=== PATIENT | female | born 1960 | race Caucasian/White ===

== ENCOUNTER 2022-04-21 21:16 | Inpatient (IN) ==
[2022-04-22] MEDS ORDERED: LORazepam 2 MG/1 ML VIAL ONE (00:30)
[2022-04-22] MEDS ORDERED: HALOPERIDOL 5 MG/ML AMP IM ONE (00:37)
[2022-04-22] MEDS ORDERED: LORazepam 2 MG/1 ML VIAL IV ONE ×2 (00:37→01:00)
[2022-04-22] MEDS ORDERED: ALBUTEROL 2.5 MG/3 ML NEB RESP TX PRN (00:45)
[2022-04-22] MEDS ORDERED: ACETAMINOPHEN 325 MG TABLET PO PRN (00:47)
[2022-04-22] MEDS ORDERED: SODIUM CHLORIDE 0.9% 1,000 ML IV SCH ×2 (01:00→04:30)
[2022-04-22 01:10] LABS: Basophils % 0.2 % (0.0-0.8); Hematocrit 42.3 VOL% (35.7-47.0); Hemoglobin 13.5 GM/DL (12.0-16.0); Immature Granulocytes % 0.6 %; Immature Granulocytes Absolute 0.11 #; Lymphocytes # 3.2 10*3/uL (1.4-4.0); Lymphocytes % 17.6 % (21.3-54.2); Mean Corpuscular HGB Conc 31.9 GM/DL (32-36); Mean Corpuscular Volume 89.4 FL (87-102); Mean Platelet Volume 11.6 FL (9.6-12.0); Monocytes # 1.8 10*3/uL (0.11-0.8); Monocytes % 9.8 % (1.7-12.7); Neutrophils % 71.8 % (38.7-73.9); Platelet Count 269 T/CUMM (130-400); Red Blood Count 4.73 MC/CUMM (3.8-5.5); Red Cell Distribution Width 13.7 % (9.3-17.3); White Blood Count 18.3 T/CUMM (4-12)
[2022-04-22] MEDS ORDERED: DEXMEDETOMIDINE 200 MCG in SODIUM CHLORIDE 0.9% 48 ML IV PRN (01:15)
[2022-04-22 01:33] LABS: Lactic Acid 4.9 MMOL/L (0.4-2.0)
[2022-04-22 01:49] LABS: Albumin 3.3 G/DL (3.4-5.0); Calcium 8.9 MG/DL (8.5-10.1); Osmolality,Calculated 271.2 MOS/KG (273-304); Potassium 4.5 MMOL/L (3.5-5.1); Total Protein 7.6 G/DL (6.4-8.2)
[2022-04-22] MEDS ORDERED: SODIUM PHOSPHATE IV PRN (01:59)
[2022-04-22] MEDS ORDERED: SODIUM BICARB INJ 100 MEQ in STERILE WATER INJ 400 ML IV PRN (01:59)
[2022-04-22] MEDS ORDERED: MAGNESIUM SULF RIDER 4 GM/100 ML PREMIX IV PRN (01:59)
[2022-04-22] MEDS ORDERED: POTASSIUM CHLORIDE RIDER 10 MEQ/100 ML PREMIX IV PRN (01:59)
[2022-04-22] MEDS ORDERED: SODIUM CHLORIDE 0.9% IV PRN (01:59)
[2022-04-22 02:36] LABS: Arterial Base Excess iSTAT -5 MMOL/L (-2.5-2.5); Arterial Bicarbonate iSTAT 21.6 MMOL/L (20-26); Arterial O2 Saturation iSTAT 100 % (95-100); Arterial PCO2 iSTAT 44 MM HG (35-48); Arterial PO2 iSTAT 339 MM HG (80-95); Arterial Total CO2 iSTAT 23 MMO/L (23-27); Arterial pH iSTAT 7.298 (7.35-7.45)
[2022-04-22] MEDS ORDERED: DEXTROSE 10% 250 ML BAG IV PRN ×2 (02:40→02:41)
[2022-04-22 04:21] LABS: Mucus,Urine Occasional /LPF (Occasional); RBC,Urine 2 /HPF (0-4); Squamous Epithelial Cell,Urine Occasional /HPF (0-10)
[2022-04-22 04:22] LABS: Bilirubin,Urine Large mg/dL (Negative); Blood, Urine Trace mg/dL (Negative); Glucose,Urine (UA) Negative (Negative); Ketones,Urine 80 mg/dL (Negative); Nitrite,Urine Negative (Negative); Protein,Urine 30 mg/dL (Negative); Urine Appearance Clear (Clear); Urine Color Yellow (Yellow); Urine Specific Gravity 1.015 (1.001-1.035); Urine Urobilinogen 0.2 eU/dL (<2.0)
[2022-04-22] MEDS: MAGNESIUM SULF RIDER 2 GM/50 ML PREMIX IV PRN (04:23)
[2022-04-22] MEDS: DEXMEDETOMIDINE 400 MCG in SODIUM CHLORIDE 0.9% 96 ML IV PRN ×4 (05:27→21:11)
[2022-04-22 06:51] LABS: Calcium 8.3 MG/DL (8.5-10.1); Osmolality,Calculated 283.8 MOS/KG (273-304); Potassium 4.4 MMOL/L (3.5-5.1)
[2022-04-22] MEDS ORDERED: ZIPRASIDONE 20 MG/1 ML VIAL IM ONE (08:03)
[2022-04-22] MEDS ORDERED: DEXTROSE 50% 25 GM/50 ML VIAL IV PRN ×2 (08:04)
[2022-04-22] MEDS ORDERED: SODIUM CHLORIDE 0.9% 1,000 ML IV ONE (08:04)
[2022-04-22 08:22] LABS: INR 0.9; PT Patient Result 10.4 SECS (10.1-12.1)
[2022-04-22 08:45] LABS: Acetaminophen < 2.0 UG/ML (10-30); Salicylate < 2.8 MG/DL (2.8-20)
[2022-04-22 09:04] LABS: Barbiturates Screen,Urine Negative (Negative); Benzodiazepines Screen,Urine Positive (Negative); Cannabinoid Screen,Urine Negative (Negative); Opiate Screen,Urine Positive (Negative); Phencyclidine Screen,Urine Negative (Negative)
[2022-04-22] MEDS: ENOXAPARIN 40 MG/0.4 ML SYRINGE SUBCUT SCH (09:10)
[2022-04-22 09:28] LABS: Arterial Base Excess iSTAT -10 MMOL/L (-2.5-2.5); Arterial Bicarbonate iSTAT 17.7 MMOL/L (20-26); Arterial O2 Saturation iSTAT 98 % (95-100); Arterial PCO2 iSTAT 44 MM HG (35-48); Arterial PO2 iSTAT 138 MM HG (80-95); Arterial Total CO2 iSTAT 19 MMO/L (23-27); Arterial pH iSTAT 7.214 (7.35-7.45)
[2022-04-22] MEDS: INSULIN REGULAR DRIP 100 ML IV SCH (10:54)
[2022-04-22] MEDS: SODIUM CHLOR 0.45% KCL 20 MEQ 20 MEQ/1,000 ML BAG IV SCH ×5 (10:55→21:21)
[2022-04-22] MEDS: QUEtiapine 25 MG TABLET PO SCH ×2 (11:27→21:22)
[2022-04-22] MEDS: PANTOPRAZOLE 40 MG VIAL IV SCH ×2 (11:27→22:00)
[2022-04-22] MEDS: PIPERACILLIN/TAZOBACTAM 3,375 MG in SODIUM CHLORIDE 0.9% 100 ML IV SCH ×2 (11:28→19:00)
[2022-04-22] MEDS: MORPHINE 2 MG/1 ML SYRINGE IV PRN (11:29)
[2022-04-22 11:39] LABS: Calcium 8.2 MG/DL (8.5-10.1); Osmolality,Calculated 288.1 MOS/KG (273-304); Potassium 5.2 MMOL/L (3.5-5.1)
[2022-04-22 12:30] LABS: Potassium 4.4 MMOL/L (3.5-5.1)
[2022-04-22] MEDS: ZIPRASIDONE 20 MG/1 ML VIAL IM PRN ×2 (13:35→21:21)
[2022-04-22 16:02] LABS: Calcium 7.7 MG/DL (8.5-10.1); Osmolality,Calculated 283.4 MOS/KG (273-304); Potassium 4.5 MMOL/L (3.5-5.1)
[2022-04-22] MEDS: DEXT 5% NACL 0.45% KCL 20 MEQ 20 MEQ/1,000 ML BAG IV SCH ×3 (16:30→22:23)
[2022-04-22 19:26] LABS: Calcium 7.6 MG/DL (8.5-10.1); Osmolality,Calculated 282.5 MOS/KG (273-304); Potassium 4.1 MMOL/L (3.5-5.1)
[2022-04-22] MEDS: SODIUM CHLORIDE 0.45% 1,000 ML IV SCH (19:38)
[2022-04-22] MEDS ORDERED: INSULIN GLARGINE 100 UNIT/ML SUBCUT ONE (20:00)
[2022-04-22] MEDS ORDERED: INSULIN REGULAR 100 UNIT/ML SUBCUT SCH (22:00)
[2022-04-23] MEDS: ZIPRASIDONE 20 MG/1 ML VIAL IM PRN ×2 (01:40→11:00)
[2022-04-23] MEDS: DEXMEDETOMIDINE 400 MCG in SODIUM CHLORIDE 0.9% 96 ML IV PRN ×4 (02:01→19:54)
[2022-04-23] MEDS: SODIUM CHLOR 0.45% KCL 20 MEQ 20 MEQ/1,000 ML BAG IV SCH ×6 (02:06→21:30)
[2022-04-23 02:48] LABS: Basophils % 0.1 % (0.0-0.8); Eosinophils # 0.1 10*3/uL (0.0-0.87); Eosinophils % 0.6 % (0.00-10.9); Hematocrit 32.6 VOL% (35.7-47.0); Immature Granulocytes % 0.3 %; Immature Granulocytes Absolute 0.03 #; Lymphocytes # 1.9 10*3/uL (1.4-4.0); Lymphocytes % 17.9 % (21.3-54.2); Mean Corpuscular Volume 92.4 FL (87-102); Monocytes # 0.9 10*3/uL (0.11-0.8); Monocytes % 8.7 % (1.7-12.7); Neutrophils % 72.4 % (38.7-73.9); Platelet Count 170 T/CUMM (130-400); Red Blood Count 3.53 MC/CUMM (3.8-5.5); Red Cell Distribution Width 14.3 % (9.3-17.3); White Blood Count 10.3 T/CUMM (4-12)
[2022-04-23 02:54] LABS: Hemoglobin 10.1 GM/DL (12.0-16.0)
[2022-04-23] MEDS: PIPERACILLIN/TAZOBACTAM 3,375 MG in SODIUM CHLORIDE 0.9% 100 ML IV SCH ×3 (03:00→19:22)
[2022-04-23] MEDS: MORPHINE 2 MG/1 ML SYRINGE IV PRN (03:02)
[2022-04-23 03:10] LABS: Phosphorous 2.1 MG/DL (2.5-4.9)
[2022-04-23 03:11] LABS: Albumin 2.4 G/DL (3.4-5.0); Bilirubin,Total 0.4 MG/DL (0.20-1.00); Calcium 7.8 MG/DL (8.5-10.1); Osmolality,Calculated 281.7 MOS/KG (273-304); Potassium 3.9 MMOL/L (3.5-5.1); Total Protein 5.5 G/DL (6.4-8.2)
[2022-04-23 03:53] LABS: Arterial Base Excess iSTAT -4 MMOL/L (-2.5-2.5); Arterial Bicarbonate iSTAT 22.5 MMOL/L (20-26); Arterial O2 Saturation iSTAT 100 % (95-100); Arterial PCO2 iSTAT 48 MM HG (35-48); Arterial PO2 iSTAT 213 MM HG (80-95); Arterial Total CO2 iSTAT 24 MMO/L (23-27); Arterial pH iSTAT 7.275 (7.35-7.45)
[2022-04-23 03:57] LABS: Risk Ratio 2.36; VLDL Cholesterol 30.6 MG/DL
[2022-04-23] MEDS: SODIUM CHLORIDE 0.45% 1,000 ML IV SCH ×3 (05:36→20:32)
[2022-04-23] MEDS: INSULIN REGULAR 100 UNIT/ML SUBCUT SCH ×5 (05:37→20:33)
[2022-04-23] MEDS: DEXT 5% NACL 0.45% KCL 20 MEQ 20 MEQ/1,000 ML BAG IV SCH ×3 (05:39→18:05)
[2022-04-23] MEDS ORDERED: FUROSEMIDE 40 MG/4 ML VIAL IV ONE (08:20)
[2022-04-23] MEDS: INSULIN REGULAR DRIP 100 ML IV SCH (09:44)
[2022-04-23] MEDS: DOCUSATE SODIUM 100 MG/10 ML UDCUP PO SCH (10:00)
[2022-04-23] MEDS: PANTOPRAZOLE 40 MG VIAL IV SCH ×2 (10:00→20:34)
[2022-04-23] MEDS: ENOXAPARIN 40 MG/0.4 ML SYRINGE SUBCUT SCH (10:00)
[2022-04-23] MEDS: QUEtiapine 25 MG TABLET PO SCH ×2 (10:00→20:35)
[2022-04-23] MEDS: LACTULOSE 20 GM/30 ML UDCUP PO SCH ×2 (10:51→20:34)
[2022-04-23] MEDS ORDERED: LORazepam 2 MG/1 ML VIAL IV ONE (17:00)
[2022-04-24] MEDS: ZIPRASIDONE 20 MG/1 ML VIAL IM PRN ×3 (00:23→18:07)
[2022-04-24] MEDS: DEXMEDETOMIDINE 400 MCG in SODIUM CHLORIDE 0.9% 96 ML IV PRN ×2 (01:34→08:13)
[2022-04-24] MEDS: INSULIN REGULAR 100 UNIT/ML SUBCUT SCH ×6 (01:35→20:46)
[2022-04-24] MEDS: SODIUM CHLOR 0.45% KCL 20 MEQ 20 MEQ/1,000 ML BAG IV SCH ×6 (01:37→20:48)
[2022-04-24 03:52] LABS: Basophils % 0.4 % (0.0-0.8); Eosinophils # 0.2 10*3/uL (0.0-0.87); Eosinophils % 1.8 % (0.00-10.9); Hematocrit 35.4 VOL% (35.7-47.0); Hemoglobin 11.2 GM/DL (12.0-16.0); Immature Granulocytes % 0.3 %; Immature Granulocytes Absolute 0.03 #; Lymphocytes # 1.3 10*3/uL (1.4-4.0); Lymphocytes % 14.7 % (21.3-54.2); Mean Corpuscular HGB Conc 31.6 GM/DL (32-36); Mean Corpuscular Volume 91.5 FL (87-102); Mean Platelet Volume 11.7 FL (9.6-12.0); Monocytes # 0.6 10*3/uL (0.11-0.8); Monocytes % 7.2 % (1.7-12.7); Neutrophils % 75.6 % (38.7-73.9); Platelet Count 184 T/CUMM (130-400); Red Blood Count 3.87 MC/CUMM (3.8-5.5); Red Cell Distribution Width 14.2 % (9.3-17.3); White Blood Count 8.9 T/CUMM (4-12)
[2022-04-24 04:11] LABS: Albumin 2.6 G/DL (3.4-5.0); Bilirubin,Total 0.4 MG/DL (0.20-1.00); Calcium 8.2 MG/DL (8.5-10.1); Osmolality,Calculated 290.3 MOS/KG (273-304); Potassium 4.3 MMOL/L (3.5-5.1); Total Protein 6.3 G/DL (6.4-8.2)
[2022-04-24] MEDS: PIPERACILLIN/TAZOBACTAM 3,375 MG in SODIUM CHLORIDE 0.9% 100 ML IV SCH ×3 (04:11→20:46)
[2022-04-24] MEDS: SODIUM CHLORIDE 0.45% 1,000 ML IV SCH ×3 (04:12→19:05)
[2022-04-24 05:32] LABS: Arterial Base Excess iSTAT 0 MMOL/L (-2.5-2.5); Arterial Bicarbonate iSTAT 26.7 MMOL/L (20-26); Arterial O2 Saturation iSTAT 99 % (95-100); Arterial PCO2 iSTAT 51 MM HG (35-48); Arterial PO2 iSTAT 152 MM HG (80-95); Arterial Total CO2 iSTAT 28 MMO/L (23-27); Arterial pH iSTAT 7.322 (7.35-7.45)
[2022-04-24] MEDS: DEXT 5% NACL 0.45% KCL 20 MEQ 20 MEQ/1,000 ML BAG IV SCH ×2 (07:38→19:05)
[2022-04-24] MEDS: ENOXAPARIN 40 MG/0.4 ML SYRINGE SUBCUT SCH (08:30)
[2022-04-24] MEDS: PANTOPRAZOLE 40 MG VIAL IV SCH ×2 (08:31→20:40)
[2022-04-24] MEDS: QUEtiapine 25 MG TABLET PO SCH ×2 (08:31→20:48)
[2022-04-24] MEDS: DOCUSATE SODIUM 100 MG/10 ML UDCUP PO SCH (08:32)
[2022-04-24] MEDS: LACTULOSE 20 GM/30 ML UDCUP PO SCH ×2 (08:32→20:48)
[2022-04-24] MEDS: INSULIN GLARGINE 100 UNIT/ML SUBCUT SCH (11:55)
[2022-04-24] MEDS: DIAZEPAM 5 MG TABLET PO SCH ×2 (15:00→20:48)
[2022-04-24] MEDS: MORPHINE 2 MG/1 ML SYRINGE IV PRN ×2 (15:15→19:16)
[2022-04-24] MEDS: ONDANSETRON 4 MG/2 ML VIAL IV PRN (19:34)
[2022-04-24] MEDS ORDERED: HALOPERIDOL 5 MG/ML AMP IM ONE (20:18)
[2022-04-24] MEDS: hydrALAZINE 20 MG/1 ML VIAL IV PRN (22:38)
[2022-04-25] MEDS ORDERED: LABETALOL 20 MG/4 ML SYRINGE IV ONE (00:15)
[2022-04-25] MEDS: INSULIN REGULAR 100 UNIT/ML SUBCUT SCH ×6 (00:24→20:49)
[2022-04-25] MEDS: SODIUM CHLOR 0.45% KCL 20 MEQ 20 MEQ/1,000 ML BAG IV SCH ×2 (00:54→04:14)
[2022-04-25] MEDS: ZIPRASIDONE 20 MG/1 ML VIAL IM PRN ×3 (01:08→20:15)
[2022-04-25] MEDS ORDERED: HALOPERIDOL 5 MG/ML AMP IM ONE (02:00)
[2022-04-25 03:33] LABS: Basophils % 0.3 % (0.0-0.8); Eosinophils # 0.1 10*3/uL (0.0-0.87); Eosinophils % 0.7 % (0.00-10.9); Hematocrit 37.9 VOL% (35.7-47.0); Hemoglobin 11.9 GM/DL (12.0-16.0); Immature Granulocytes % 0.4 %; Immature Granulocytes Absolute 0.04 #; Lymphocytes # 1.1 10*3/uL (1.4-4.0); Lymphocytes % 10.2 % (21.3-54.2); Mean Corpuscular HGB Conc 31.4 GM/DL (32-36); Mean Corpuscular Volume 90.7 FL (87-102); Monocytes # 0.8 10*3/uL (0.11-0.8); Monocytes % 7.2 % (1.7-12.7); Neutrophils % 81.2 % (38.7-73.9); Platelet Count 225 T/CUMM (130-400); Red Blood Count 4.18 MC/CUMM (3.8-5.5); Red Cell Distribution Width 14.2 % (9.3-17.3); White Blood Count 10.9 T/CUMM (4-12)
[2022-04-25] MEDS: MORPHINE 2 MG/1 ML SYRINGE IV PRN ×2 (03:33→08:57)
[2022-04-25 03:46] LABS: Calcium 8.6 MG/DL (8.5-10.1); Osmolality,Calculated 290.3 MOS/KG (273-304); Potassium 4.1 MMOL/L (3.5-5.1)
[2022-04-25] MEDS: SODIUM CHLORIDE 0.45% 1,000 ML IV SCH (03:46)
[2022-04-25] MEDS: MAGNESIUM SULF RIDER 2 GM/50 ML PREMIX IV PRN (04:13)
[2022-04-25] MEDS: PIPERACILLIN/TAZOBACTAM 3,375 MG in SODIUM CHLORIDE 0.9% 100 ML IV SCH ×3 (04:48→20:53)
[2022-04-25] MEDS: hydrALAZINE 20 MG/1 ML VIAL IV PRN (06:02)
[2022-04-25] MEDS: PANTOPRAZOLE 40 MG VIAL IV SCH ×2 (08:46→20:48)
[2022-04-25] MEDS: ENOXAPARIN 40 MG/0.4 ML SYRINGE SUBCUT SCH (08:46)
[2022-04-25] MEDS: INSULIN GLARGINE 100 UNIT/ML SUBCUT SCH (08:47)
[2022-04-25] MEDS: LACTULOSE 20 GM/30 ML UDCUP PO SCH ×2 (09:00→20:52)
[2022-04-25] MEDS: DIAZEPAM 5 MG TABLET PO SCH ×3 (09:00→20:53)
[2022-04-25] MEDS: QUEtiapine 25 MG TABLET PO SCH ×2 (09:01→20:53)
[2022-04-25] MEDS ORDERED: METOPROLOL TARTRATE 5 MG/5 ML VIAL IV ONE (10:19)
[2022-04-25] MEDS: DOCUSATE SODIUM 100 MG/10 ML UDCUP PO SCH (10:28)
[2022-04-25] MEDS ORDERED: QUEtiapine 25 MG TABLET PO ONE (10:54)
[2022-04-26] MEDS: INSULIN REGULAR 100 UNIT/ML SUBCUT SCH ×6 (00:04→22:00)
[2022-04-26] MEDS: hydrALAZINE 20 MG/1 ML VIAL IV PRN (01:08)
[2022-04-26] MEDS: MORPHINE 2 MG/1 ML SYRINGE IV PRN ×2 (02:13→06:42)
[2022-04-26] MEDS: PIPERACILLIN/TAZOBACTAM 3,375 MG in SODIUM CHLORIDE 0.9% 100 ML IV SCH ×3 (04:06→20:31)
[2022-04-26 04:22] LABS: Basophils % 0.5 % (0.0-0.8); Eosinophils # 0.2 10*3/uL (0.0-0.87); Eosinophils % 2.1 % (0.00-10.9); Hematocrit 36.1 VOL% (35.7-47.0); Hemoglobin 11.3 GM/DL (12.0-16.0); Immature Granulocytes % 0.3 %; Immature Granulocytes Absolute 0.03 #; Lymphocytes # 1.5 10*3/uL (1.4-4.0); Lymphocytes % 16.7 % (21.3-54.2); Mean Corpuscular HGB Conc 31.3 GM/DL (32-36); Mean Corpuscular Volume 91.2 FL (87-102); Mean Platelet Volume 11.8 FL (9.6-12.0); Monocytes # 0.9 10*3/uL (0.11-0.8); Neutrophils % 70.4 % (38.7-73.9); Platelet Count 225 T/CUMM (130-400); Red Blood Count 3.96 MC/CUMM (3.8-5.5); Red Cell Distribution Width 14.7 % (9.3-17.3); White Blood Count 8.7 T/CUMM (4-12)
[2022-04-26 04:29] LABS: Osmolality,Calculated 281.5 MOS/KG (273-304); Potassium 3.6 MMOL/L (3.5-5.1)
[2022-04-26] MEDS: POTASSIUM BICARB EFFERVESCENT 20 MEQ TAB.EFF PER TUBE PRN ×2 (06:25→10:57)
[2022-04-26] MEDS: ONDANSETRON 4 MG/2 ML VIAL IV PRN ×2 (06:45→14:00)
[2022-04-26] MEDS ORDERED: METOPROLOL TARTRATE 5 MG/5 ML VIAL IV PRN (07:36)
[2022-04-26] MEDS ORDERED: METOCLOPRAMIDE 10 MG TABLET PO PRN (07:41)
[2022-04-26] MEDS: DOCUSATE SODIUM 100 MG/10 ML UDCUP PO SCH (09:33)
[2022-04-26] MEDS: LOSARTAN 50 MG TABLET PO SCH (09:35)
[2022-04-26] MEDS: ENOXAPARIN 40 MG/0.4 ML SYRINGE SUBCUT SCH (09:35)
[2022-04-26] MEDS: hydroCHLOROthiazide 25 MG TABLET PO SCH (09:36)
[2022-04-26] MEDS: LEVOTHYROXINE 100 MCG TABLET PO SCH (09:36)
[2022-04-26] MEDS: DIAZEPAM 5 MG TABLET PO SCH ×3 (09:37→20:45)
[2022-04-26] MEDS: QUEtiapine 25 MG TABLET PO SCH ×2 (09:37→20:46)
[2022-04-26] MEDS: METOPROLOL TARTRATE 25 MG TABLET PO SCH ×2 (09:37→20:42)
[2022-04-26] MEDS: DIVALPROEX 250 MG TABLET PO SCH ×2 (09:37→20:46)
[2022-04-26] MEDS: METHOCARBAMOL 500 MG TABLET PO SCH ×3 (09:37→20:45)
[2022-04-26] MEDS: PANTOPRAZOLE 40 MG VIAL IV SCH ×2 (09:38→20:31)
[2022-04-26] MEDS: INSULIN GLARGINE 100 UNIT/ML SUBCUT SCH (09:38)
[2022-04-26] MEDS: PREGABALIN 50 MG CAPSULE PO SCH ×3 (09:38→20:43)
[2022-04-26] MEDS: LACTULOSE 20 GM/30 ML UDCUP PO SCH ×2 (10:02→20:49)
[2022-04-26] MEDS: FLUTICASONE 50 MCG NASAL SPRAY 16 GM BOTTLE BOTH NARES SCH (16:36)
[2022-04-26] MEDS: SIMVASTATIN 10 MG TABLET PO SCH (21:06)
[2022-04-27] MEDS: INSULIN REGULAR 100 UNIT/ML SUBCUT SCH ×6 (00:17→20:50)
[2022-04-27 04:03] LABS: Basophils # 0.1 10*3/uL (0.0-0.2); Basophils % 0.7 % (0.0-0.8); Eosinophils # 0.3 10*3/uL (0.0-0.87); Eosinophils % 4.3 % (0.00-10.9); Hematocrit 35.5 VOL% (35.7-47.0); Hemoglobin 10.9 GM/DL (12.0-16.0); Immature Granulocytes % 0.4 %; Immature Granulocytes Absolute 0.03 #; Lymphocytes # 2.2 10*3/uL (1.4-4.0); Lymphocytes % 30.3 % (21.3-54.2); Mean Corpuscular HGB Conc 30.7 GM/DL (32-36); Mean Corpuscular Volume 93.7 FL (87-102); Mean Platelet Volume 11.8 FL (9.6-12.0); Monocytes # 0.6 10*3/uL (0.11-0.8); Monocytes % 8.8 % (1.7-12.7); Neutrophils % 55.5 % (38.7-73.9); Platelet Count 230 T/CUMM (130-400); Red Blood Count 3.79 MC/CUMM (3.8-5.5); Red Cell Distribution Width 14.6 % (9.3-17.3); White Blood Count 7.2 T/CUMM (4-12)
[2022-04-27 04:08] LABS: Calcium 8.8 MG/DL (8.5-10.1)
[2022-04-27] MEDS: PIPERACILLIN/TAZOBACTAM 3,375 MG in SODIUM CHLORIDE 0.9% 100 ML IV SCH ×3 (04:14→20:49)
[2022-04-27] MEDS: ONDANSETRON 4 MG/2 ML VIAL IV PRN (07:05)
[2022-04-27] MEDS: PANTOPRAZOLE 40 MG VIAL IV SCH ×2 (08:45→20:47)
[2022-04-27] MEDS: hydroCHLOROthiazide 25 MG TABLET PO SCH (08:45)
[2022-04-27] MEDS: LEVOTHYROXINE 100 MCG TABLET PO SCH (08:45)
[2022-04-27] MEDS: DIVALPROEX 250 MG TABLET PO SCH (08:45)
[2022-04-27] MEDS: METOPROLOL TARTRATE 25 MG TABLET PO SCH ×2 (08:45→20:54)
[2022-04-27] MEDS: LOSARTAN 50 MG TABLET PO SCH (08:45)
[2022-04-27] MEDS: PREGABALIN 50 MG CAPSULE PO SCH ×3 (08:45→20:54)
[2022-04-27] MEDS: METHOCARBAMOL 500 MG TABLET PO SCH ×3 (08:45→20:54)
[2022-04-27] MEDS: ENOXAPARIN 40 MG/0.4 ML SYRINGE SUBCUT SCH (08:45)
[2022-04-27] MEDS: QUEtiapine 25 MG TABLET PO SCH ×2 (08:45→21:03)
[2022-04-27] MEDS: INSULIN GLARGINE 100 UNIT/ML SUBCUT SCH (08:45)
[2022-04-27] MEDS: DIAZEPAM 5 MG TABLET PO SCH (08:45)
[2022-04-27] MEDS: DOCUSATE SODIUM 100 MG/10 ML UDCUP PO SCH (08:45)
[2022-04-27] MEDS: LACTULOSE 20 GM/30 ML UDCUP PO SCH ×2 (08:45→20:59)
[2022-04-27] MEDS: FLUTICASONE 50 MCG NASAL SPRAY 16 GM BOTTLE BOTH NARES SCH (08:50)
[2022-04-27] MEDS: SIMVASTATIN 10 MG TABLET PO SCH (20:54)
[2022-04-28] MEDS ORDERED: traZODone 50 MG TABLET PO ONE (00:09)
[2022-04-28] MEDS: INSULIN REGULAR 100 UNIT/ML SUBCUT SCH ×4 (00:21→12:10)
[2022-04-28 03:56] LABS: Basophils % 0.6 % (0.0-0.8); Eosinophils # 0.2 10*3/uL (0.0-0.87); Eosinophils % 3.3 % (0.00-10.9); Hematocrit 36.1 VOL% (35.7-47.0); Hemoglobin 11.1 GM/DL (12.0-16.0); Immature Granulocytes % 0.3 %; Immature Granulocytes Absolute 0.02 #; Lymphocytes % 27.1 % (21.3-54.2); Mean Corpuscular HGB Conc 30.7 GM/DL (32-36); Mean Corpuscular Volume 92.1 FL (87-102); Mean Platelet Volume 11.9 FL (9.6-12.0); Monocytes # 0.7 10*3/uL (0.11-0.8); Monocytes % 9.3 % (1.7-12.7); Neutrophils % 59.4 % (38.7-73.9); Platelet Count 218 T/CUMM (130-400); Red Blood Count 3.92 MC/CUMM (3.8-5.5); Red Cell Distribution Width 14.1 % (9.3-17.3); White Blood Count 7.2 T/CUMM (4-12)
[2022-04-28] MEDS: PIPERACILLIN/TAZOBACTAM 3,375 MG in SODIUM CHLORIDE 0.9% 100 ML IV SCH (04:04)
[2022-04-28 04:11] LABS: Calcium 8.9 MG/DL (8.5-10.1); Osmolality,Calculated 282.4 MOS/KG (273-304); Potassium 3.7 MMOL/L (3.5-5.1)
[2022-04-28] MEDS ORDERED: PANTOPRAZOLE 40 MG TABLET PO ONE (08:38)
[2022-04-28] MEDS: ENOXAPARIN 40 MG/0.4 ML SYRINGE SUBCUT SCH (08:50)
[2022-04-28] MEDS: METOPROLOL TARTRATE 25 MG TABLET PO SCH (08:50)
[2022-04-28] MEDS: QUEtiapine 25 MG TABLET PO SCH (08:50)
[2022-04-28] MEDS: LACTULOSE 20 GM/30 ML UDCUP PO SCH (08:50)
[2022-04-28] MEDS: hydroCHLOROthiazide 25 MG TABLET PO SCH (08:50)
[2022-04-28] MEDS: FLUTICASONE 50 MCG NASAL SPRAY 16 GM BOTTLE BOTH NARES SCH (08:50)
[2022-04-28] MEDS: METHOCARBAMOL 500 MG TABLET PO SCH (08:50)
[2022-04-28] MEDS: PREGABALIN 50 MG CAPSULE PO SCH (08:50)
[2022-04-28] MEDS: DOCUSATE SODIUM 100 MG/10 ML UDCUP PO SCH (08:50)
[2022-04-28] MEDS: LOSARTAN 50 MG TABLET PO SCH (08:50)
[2022-04-28] MEDS: INSULIN GLARGINE 100 UNIT/ML SUBCUT SCH (08:50)
[2022-04-28] MEDS: LEVOTHYROXINE 100 MCG TABLET PO SCH (08:50)
[2022-04-28] MEDS ORDERED: PANTOPRAZOLE 40 MG TABLET PO SCH (09:00)
[2022-04-28 14:01] VITALS: BP 128/63
== END 2022-04-28 13:15 | disposition home or self-care (01) | DRG 917 ==
LOC: N.ICU 04-22 00:21 → SUATTDRO 04-22 00:43
PROVIDERS: ADMIT Internal Medicine; ATTEND Internal Medicine